=== PATIENT | male | born 1965 | race Caucasian/White ===

== ENCOUNTER → 2018-01-25 | Outpatient (CLI) | payer OTHER ==
[~2018-01-25] MED LIST: CIPRO750 MG PO; CLONAZEPAM1 MG PO; DOCUSATE SODIU100 MG PO; METHYLPRED4 MG/DOSE- PO; NEURONTIN PO; PERCOCET 5/321 UDTAB PO
== END | disposition home or self-care (01) ==
LOC: MRI 12:03
DX: M51.36 Other intervertebral disc degeneration, lumbar region (principal); Z98.1 Arthrodesis status
CPT/HCPCS: 72148

== ENCOUNTER 2022-05-10 08:00 | Inpatient (IN) | payer OTHER ==
[~2022-05-10] VITALS: Ht 182.9 cm; Wt 80.7 kg
[2022-05-10] MEDS ORDERED: PERCOCET 5-3251 EACH PO (11:02)
[2022-05-10] MEDS ORDERED: ZANAFLEX2 MG PO (11:02)
[2022-05-12] MEDS ORDERED: PERCOCET 5-3251 EACH PO (13:49)
[2022-05-12] MEDS ORDERED: AMOX-CLAV 875-1 EACH PO (13:50)
[2022-05-12] MEDS ORDERED: MEDROLPACK PO (13:50)
[2022-05-12] MEDS ORDERED: COLACE100 MG PO (13:50)
[2022-05-12] MEDS ORDERED: NEURONTIN800 MG PO (13:51)
== END 2022-05-13 12:37 | disposition home or self-care (01) | DRG 519 ==
LOC: SURG 05-12 08:00 → O/R 05-12 08:50 → PED 05-12 08:50 → SURG 05-12 22:00 → PED 05-13 12:37
PROVIDERS: ADMIT Orthopaedic Surgery Orthopaedic Surgery of the Spine; ATTEND Orthopaedic Surgery Orthopaedic Surgery of the Spine
PROC: 0SP004Z Removal of Internal Fixation Device from Lumbar Vertebral Joint, Open Approach (ICD-10-PCS; 2022-05-12)
PROC: 0SP304Z Removal of Internal Fixation Device from Lumbosacral Joint, Open Approach (ICD-10-PCS; 2022-05-12)
PROC: 0SW304Z Revision of Internal Fixation Device in Lumbosacral Joint, Open Approach (ICD-10-PCS; 2022-05-12)
PROC: 07DR0ZZ Extraction of Iliac Bone Marrow, Open Approach (ICD-10-PCS; 2022-05-12)
PROC: 0QB30ZZ Excision of Left Pelvic Bone, Open Approach (ICD-10-PCS; 2022-05-12)
PROC: 00JU0ZZ Inspection of Spinal Canal, Open Approach (ICD-10-PCS; principal; 2022-05-12 22:00)
DX: M54.17 Radiculopathy, lumbosacral region (principal); M96.0 Pseudarthrosis after fusion or arthrodesis; M48.061 Spinal stenosis, lumbar region without neurogenic claudication